=== PATIENT | female | born 1955 | race Caucasian/White ===

== ENCOUNTER 2017-04-04 15:28 | Emergency (ER) | payer OTHER ==
[~2017-04-04] VITALS: Wt 61.0 kg
[2017-04-04] MEDS ORDERED: IBUPROFEN 600 MG TAB PO ONE (16:30)
[2017-04-04] MEDS ORDERED: AMOXICILLIN/CLAV 875 MG TAB PO ONE (16:30)
[2017-04-04] MEDS ORDERED: ALPRAZOLAM 0.25 MG TAB PO ONE (16:30)
[2017-04-04] MEDS ORDERED: DIPHTH/TET/ACEL PERTUSS (ADULT) 0.5 ML VIAL IM* ONE (16:30)
[2017-04-04] MEDS ORDERED: AMOX1TAB10 PO (17:13)
[2017-04-04] MEDS ORDERED: NAPR-688 PO (17:13)
[2017-04-04] MEDS ORDERED: HYDR-906 PO (17:13)
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
== END 2017-04-04 17:50 | disposition home or self-care (01) ==
LOC: E/R 15:28
DX: S30.860A Insect bite (nonvenomous) of lower back and pelvis, initial encounter (principal); W57.XXXA Bitten or stung by nonvenomous insect and other nonvenomous arthropods, initial encounter; Y92.9 Unspecified place or not applicable; Z23 Encounter for immunization
CPT/HCPCS: 90471; 90715